=== PATIENT | male | born 1985 | race Hispanic/Latino ===

== ENCOUNTER 2019-09-13 13:37 | Emergency (ER) | payer SELFPAY, OTHER ==
--- NOTE | 2019-09-13 15:24 | ER ---
Nurse's Notes [facility] Name: Ras King Age: 34 yrs Sex: Male : 1985 Arrival Date: 09/13/2019 Time: 13:48 Bed 24 Private MD: Diagnosis: Acute upper respiratory infection, unspecified Presentation: 09/12 14:21 Chief complaint: Patient states: Subjective fever at night, mild cough in the morning x jl7 1 week; dizzy weak x 2 days. Coronavirus screen: Patient reports a cough. Patient denies shortness of breath or difficulty breathing. Patient reports a measured and/or subjective temperature greater than 100.4F. Patient denies travel on a cruise ship or to a country the [facility] currently lists as an affected area. Patient reports contact with known and/or suspected case of COVID-19. Patient instructed to continue to wear a mask when interacting with others. Patient moved to private room, placed in contact and droplet isolation with eye protection until further assessment. Ebola Screen: No symptoms or risks identified at this time. Initial Sepsis Screen: Does the patient meet any 2 criteria? No. Patient's initial sepsis screen is negative. Does the patient have a suspected source of infection? No. Patient's initial sepsis screen is negative. Risk Assessment: Do you want to hurt yourself or someone else? Patient reports no desire to harm self or others. Onset of symptoms was September 07, 2019. Care prior to arrival: None. 14:21 Method Of Arrival: Ambulatory jl7 14:21 Acuity: TERRENCE 4 jl7 Triage Assessment: 14:24 General: Appears in no apparent distress. uncomfortable, Behavior is calm, cooperative, jl7 appropriate for age. Pain: Complains of pain in back Pain currently is 5 out of 10 on a pain scale. Historical: - Allergies: 14:24 No Known Allergies; jl7 - Home Meds: 14:24 None [Active]; jl7 - PMHx: 14:24 None; jl7 - PSHx: 14:24 None; jl7 - Immunization history:: Adult Immunizations unknown. - Social history:: Smoking status: Patient denies any tobacco usage or history of. Screenin:03 Abuse screen: Denies threats or abuse. Nutritional screening: No deficits noted. ll1 Tuberculosis screening: No symptoms or risk factors identified. Fall Risk None identified. No fall in past 12 months (0 pts). Total Carrion Fall Scale indicates No Risk (0-24 pts). Assessment: 15:02 General: Appears in no apparent distress. Behavior is calm, cooperative. Pain: Denies ll1 pain. Neuro: No deficits noted. Cardiovascular: No deficits noted. Respiratory: Airway is patent Trachea midline Respiratory effort is even, unlabored, Respiratory pattern is regular, symmetrical, Breath sounds are clear bilaterally. GI: No deficits noted. Musculoskeletal: Reports body aches and fatigue. 15:54 Reassessment: Patient appears in no apparent distress at this time. No changes from ll1 previously documented assessment. Patient and/or family updated on plan of care and expected duration. Pain level reassessed. Patient is alert, oriented x 3, equal unlabored respirations, skin warm/dry/pink. Vital Signs: 14:21 BP 129 / 81; Pulse 74; Resp 17; Temp 99.1; Pulse Ox 100% ; Weight 58.06 kg; Height 5 jl7 ft. 6 in. (167.64 cm); Pain 5/10; 15:53 BP 114 / 76; Pulse 78; Resp 17; Pulse Ox 100% ; ll1 14:21 Body Mass Index 20.66 (58.06 kg, 167.64 cm) jl7 ED Course: 13:48 Patient arrived in ED. mr 14:24 Triage completed. jl7 14:24 Arm band placed on right wrist. jl7 14:57 Savita Winter FNP-C is [facility]. kb 14:57 Alber Lovell MD is Attending Physician. kb 15:01 Jaems Dyson, LOREN is Primary Nurse. ll1 15:04 Patient has correct armband on for positive identification. Bed in low position. Call ll1 light in reach. Side rails up X 1. Pulse ox on. NIBP on. 15:54 No provider procedures requiring assistance completed. Patient did not have IV access ll1 during this emergency room visit. Administered Medications: No medications were administered Outcome: 15:24 Discharge ordered by . kb 15:54 Discharged to home ambulatory. ll1 15:54 Condition: stable 15:54 Discharge instructions given to patient, Instructed on discharge instructions, follow up and referral plans. Demonstrated understanding of instructions, follow-up care. 15:54 Patient left the ED. ll1 Addendum: 09/16/2019 13:20 Addendum: COVID-19 Result: Positive result giiven to ED physician to notify pt. h b Physician attempted to contact pt. Signatures: Savita Winter FNP-C FNP-Josi Castanon Heather, RN RN Tod Ballard, RN RN jl7 James Dyson RN RN ll1
--- NOTE | 2019-09-13 15:24 | EDPHYS ---
Physician Documentation [facility] Name: Ras King Age: 34 yrs Sex: Male : 1985 Arrival Date: 09/13/2019 Time: 13:48 Bed 24 Private MD: ED Physician Alber Lovell HPI: 09/12 15:17 This 34 yrs old Male presents to ER via Ambulatory with complaints of Cough, kb Fever. 15:17 The patient or guardian reports cough, that is intermittent, described as moderate, kb with no sputum, flu symptoms, low-grade fever, myalgias. Onset: The symptoms/episode began/occurred 1 week(s) ago. Severity of symptoms: At their worst the symptoms were moderate, in the emergency department the symptoms are unchanged. Modifying factors: The symptoms are alleviated by nothing, the symptoms are aggravated by nothing. Associated signs and symptoms: Pertinent positives: fever, Pertinent negatives: chest pain, diarrhea, ear ache, nausea, rhinorrhea, sore throat, vomiting. The patient has not experienced similar symptoms in the past. The patient has not recently seen a physician. "I came to get a test for COVID because I've had a cough for a week and my brother in law is positive. I also need a note for work." . Historical: - Allergies: 14:24 No Known Allergies; jl7 - Home Meds: 14:24 None [Active]; jl7 - PMHx: 14:24 None; jl7 - PSHx: 14:24 None; jl7 - Immunization history:: Adult Immunizations unknown. - Social history:: Smoking status: Patient denies any tobacco usage or history of. ROS: 15:19 Cardiovascular: Negative for chest pain, palpitations, and edema, Abdomen/GI: Negative kb for abdominal pain, nausea, vomiting, diarrhea, and constipation, Back: Negative for injury and pain, MS/Extremity: Negative for injury and deformity, Skin: Negative for injury, rash, and discoloration. 15:19 Constitutional: Positive for body aches, fever, Negative for chills, fatigue, malaise, poor PO intake, weight loss. 15:19 Respiratory: Positive for cough, Negative for dyspnea on exertion, hemoptysis, orthopnea, pleurisy, shortness of breath, sputum production, wheezing. 15:19 Neuro: Positive for headache. kb Exam: 15:19 Constitutional: This is a well developed, well nourished patient who is awake, alert, kb and in no acute distress. Head/Face: Normocephalic, atraumatic. ENT: Nares patent. No nasal discharge, no septal abnormalities noted. Tympanic membranes are normal and external auditory canals are clear. Oropharynx with no redness, swelling, or masses, exudates, or evidence of obstruction, uvula midline. Mucous membranes moist. Neck: Trachea midline, no thyromegaly or masses palpated, and no cervical lymphadenopathy. Supple, full range of motion without nuchal rigidity, or vertebral point tenderness. No Meningismus. Chest/axilla: Normal chest wall appearance and motion. Nontender with no deformity. No lesions are appreciated. Cardiovascular: Regular rate and rhythm with a normal S1 and S2. No gallops, murmurs, or rubs. Normal PMI, no JVD. No pulse deficits. Respiratory: Lungs have equal breath sounds bilaterally, clear to auscultation and percussion. No rales, rhonchi or wheezes noted. No increased work of breathing, no retractions or nasal flaring. Abdomen/GI: Soft, non-tender, with normal bowel sounds. No distension or tympany. No guarding or rebound. No evidence of tenderness throughout. Back: No spinal tenderness. No costovertebral tenderness. Full range of motion. Skin: Warm, dry with normal turgor. Normal color with no rashes, no lesions, and no evidence of cellulitis. MS/ Extremity: Pulses equal, no cyanosis. Neurovascular intact. Full, normal range of motion. Neuro: Awake and alert, GCS 15, oriented to person, place, time, and situation. Cranial nerves II-XII grossly intact. Motor strength 5/5 in all extremities. Sensory grossly intact. Cerebellar exam normal. Normal gait. Vital Signs: 14:21 BP 129 / 81; Pulse 74; Resp 17; Temp 99.1; Pulse Ox 100% ; Weight 58.06 kg; Height 5 jl7 ft. 6 in. (167.64 cm); Pain 5/10; 15:53 BP 114 / 76; Pulse 78; Resp 17; Pulse Ox 100% ; ll1 14:21 Body Mass Index 20.66 (58.06 kg, 167.64 cm) jl7 MDM: 14:57 Patient medically screened. kb 15:18 Data reviewed: vital signs, nurses notes. Data interpreted: Pulse oximetry: on room air kb is 100 %. Interpretation: normal. 15:20 Counseling: I had a detailed discussion with the patient and/or guardian regarding: the kb historical points, exam findings, and any diagnostic results supporting the discharge/admit diagnosis, the need for outpatient follow up, a family practitioner, to return to the emergency department if symptoms worsen or persist or if there are any questions or concerns that arise at home. 09/12 15:20 Order name: COVID-19 kb Administered Medications: No medications were administered Disposition: 17:37 Co-signature as Attending Physician, Alber Lovell MD. rn Disposition: 09/13/19 15:24 Discharged to Home. Impression: Acute upper respiratory infection, unspecified. - Condition is Stable. - Discharge Instructions: Viral Respiratory Infection, [place], COVID-19. - Medication Reconciliation Form, Thank You Letter, Antibiotic Education, Prescription Opioid Use, Work release form form. - Follow up: Emergency Department; When: As needed; Reason: Worsening of condition. Follow up: Private Physician; When: 2 - 3 days; Reason: Recheck today's complaints, Continuance of care, Re-evaluation by your physician. Signatures: Dispatcher [employer] EDMS Savita Winter, [employer]-C [employer]-Ckb Alber Lovell MD MD rn Leal, Jahala, RN RN jl7 James Dyson RN RN ll1 Corrections: (The following items were deleted from the chart) 15:20 15:19 Cardiovascular: Negative for chest pain, palpitations, and edema, Abdomen/GI: kb Negative for abdominal pain, nausea, vomiting, diarrhea, and constipation, Back: Negative for injury and pain, MS/Extremity: Negative for injury and deformity, Skin: Negative for injury, rash, and discoloration, Neuro: Negative for headache, weakness, numbness, tingling, and seizure, kb 15:54 15:24 09/13/2019 15:24 Discharged to Home. Impression: Acute upper respiratory ll1 infection, unspecified. Condition is Stable. Forms are Work release form, Medication Reconciliation Form, Thank You Letter, Antibiotic Education, Prescription Opioid Use. Follow up: Emergency Department; When: As needed; Reason: Worsening of condition. Follow up: Private Physician; When: 2 - 3 days; Reason: Recheck today's complaints, Continuance of care, Re-evaluation by your physician. kb
[2019-09-13 21:36] VITALS: TEMP 99.1; O2SAT 100
[2019-09-13 21:38] VITALS: BP 114/76
== END 2019-09-13 15:54 | disposition home or self-care (01) ==
LOC: ER 13:37
DX: U07.1 COVID-19 (principal); J98.8 Other specified respiratory disorders
CPT/HCPCS: 99283